=== PATIENT | female | born 1950 | race Asian ===

== ENCOUNTER 2017-05-28 08:01 | Emergency (ER) | payer MEDICARE, MEDICAID, OTHER | END 2017-05-28 10:45 | disposition home or self-care (01) | LOC: FTE 08:01 | DX: R05 Cough (principal); R07.0 Pain in throat; R50.9 Fever, unspecified; R09.81 Nasal congestion; M79.1 Myalgia; I10 Essential (primary) hypertension | CPT/HCPCS: 71045; 99283-25 ==

== ENCOUNTER 2017-06-18 00:25 | Emergency (ER) | payer OTHER, MEDICAID, MEDICARE ==
[2017-06-18] MEDS: CYCLOBENZAPRINE 10 MG TAB PO (04:27)
[2017-06-18] MEDS: HYDROCODONE/APAP (5/325) TAB PO (04:28)
== END 2017-06-18 04:43 | disposition home or self-care (01) ==
LOC: FTE 00:25
DX: J06.9 Acute upper respiratory infection, unspecified (principal); S39.012A Strain of muscle, fascia and tendon of lower back, initial encounter; S16.1XXA Strain of muscle, fascia and tendon at neck level, initial encounter; I10 Essential (primary) hypertension; X58.XXXA Exposure to other specified factors, initial encounter; Y92.9 Unspecified place or not applicable
CPT/HCPCS: 99284

== ENCOUNTER 2017-08-06 09:17 | Emergency (ER) | payer OTHER | END 2017-08-06 12:21 | disposition home or self-care (01) | LOC: FTE 09:17 | DX: J20.9 Acute bronchitis, unspecified (principal); M54.6 Pain in thoracic spine; I10 Essential (primary) hypertension | CPT/HCPCS: 71045; 72072; 99284-25 ==

== ENCOUNTER 2017-12-11 09:41 | Emergency (ER) | payer OTHER | END 2017-12-11 11:24 | disposition home or self-care (01) | LOC: FTE 09:41 | DX: M54.6 Pain in thoracic spine (principal); R09.82 Postnasal drip; I10 Essential (primary) hypertension | CPT/HCPCS: 71045; 99283-25 ==